=== PATIENT | male | born 1950 | race African-American/Black ===

== ENCOUNTER 2021-01-29 08:28 | Emergency (ER) | payer MEDICARE, MEDICAID ==
[~2021-01-29] VITALS: Ht 165.1 cm; Wt 82.7 kg
[~2021-01-29 08:28] MED LIST: FERR-89 PO; PANT-31 PO
[2021-01-29 09:48] VITALS: BP 132/73
== END 2021-01-29 11:19 | disposition home or self-care (01) ==
LOC: EMS 08:32
DX: F29 Unspecified psychosis not due to a substance or known physiological condition (principal); Z59.0 Homelessness
CPT/HCPCS: 99284; Z7502

== ENCOUNTER 2025-01-14 11:00 | Inpatient (IN) | payer MEDICARE, MEDICAID ==
[~2025-01-14] VITALS: Ht 165.1 cm; Wt 72.7 kg
[~2025-01-14 11:00] MED LIST changes: -FERR-89 PO; +FERR325T27 PO
[2025-01-14 11:40] LABS: APPEARANCE,URINE TURBID (CLEAR); GLUCOSE, URINE (UA) TRACE mg/dL (NEGATIVE); LEUKOCYTE ESTERASE ,URINE LARGE (NEGATIVE); NITRATE,URINE NEGATIVE (NEGATIVE); OCCULT BLOOD,URINE LARGE (NEGATIVE); SPECIFIC GRAVITIY, URINE 1.013 (1.003-1.030)
[2025-01-14 11:40] LABS: PLATELET COUNT (AUTO) 279 K/uL (150-450); RED BLOOD CELL COUNT(AUTO) 2.84 MIL/uL (4.50-5.90); RED CELL DISTRIBUTION WIDTH 15.3 % (11.5-14.5); WHITE BLOOD COUNT (AUTO) 7.4 K/uL (4.5-11.0)
[2025-01-14 11:45] LABS: CALCIUM, TOTAL 10.0 mg/dL (8.8-10.5); CREATININE 3.56 mg/dL (0.60-1.30); GLOMERULAR FILTR. RATE CALC 21.0 mL/min (>60); GLUCOSE,RANDOM 96.0 mg/dL (70-110); SODIUM SERUM 141.0 mmol/L (136-145); UREA NITROGEN, BLOOD 64.0 mg/dL (7-18)
[2025-01-14 11:49] LABS: ASPARTATE AMINOTRANSFERASE 24.0 U/L (15-37); CREATINE KINASE, TOTAL ONLY 171.0 U/L (39-308); TOTAL PROTEIN, SERUM 7.7 g/dL (6.4-8.2)
[2025-01-14 11:49] LABS: SQUAMOUS EPITHELIAL CELL,UR Few /LPF (None Seen); SULFOSALICYLIC ACID,URINE 3+ (Negative)
[2025-01-14] MEDS: CefTRIAXone 1 GM/DEXTROSE 50 ML IV ONE ×2 (12:01→16:11)
[2025-01-14] MEDS: SODIUM CHLORIDE 0.9% 1,000 ML IV ONE ×2 (12:01→16:38)
[2025-01-14] MEDS: MORPHINE SULFATE 2 MG/ML SYRINGE IVP ONE (12:10)
[2025-01-14] MEDS ORDERED: ONDANSETRON HCL 4 MG/2 ML VIAL IVP PRN (16:00)
[2025-01-14] MEDS: HEPARIN SODIUM,PORCINE 5,000 UNITS/ML VIAL SQ SCH (16:00)
[2025-01-14] MEDS ORDERED: MORPHINE SULFATE 2 MG/ML SYRINGE IVP PRN (16:00)
[2025-01-14] MEDS: FERROUS SULFATE 325 MG EC TABLET PO SCH (16:52)
[2025-01-14 19:56] VITALS: BP 126/68; PULSE 83; RESP 20; TEMP 98.2; O2SAT 97
[2025-01-14] MEDS: MAGNESIUM HYDROXIDE SUSPENSION 30 ML UDCUP PO PRN (20:29)
[2025-01-14] MEDS: DOCUSATE SODIUM 100 MG CAPSULE PO SCH (20:29)
[2025-01-14] MEDS: ZOLPIDEM TARTRATE 5 MG TABLET PO PRN (20:43)
[2025-01-14] MEDS ORDERED: PANTOPRAZOLE SODIUM 40 MG DR TABLET PO SCH (21:00)
[2025-01-14] MEDS: HYDROCODONE/ACETAMINOPHEN 5-325 MG TABLET PO PRN (22:47)
[2025-01-15 04:36] VITALS: BP 141/69; PULSE 66; RESP 20; TEMP 97.7; O2SAT 98
[2025-01-15] MEDS ORDERED: BACL10TA PO (06:04)
[2025-01-15 07:35] VITALS: BP 132/66; PULSE 71; RESP 18; TEMP 97.3; O2SAT 98
[2025-01-15 08:03] LABS: PLATELET COUNT (AUTO) 250 K/uL (150-450); RED BLOOD CELL COUNT(AUTO) 2.59 MIL/uL (4.50-5.90); RED CELL DISTRIBUTION WIDTH 15.7 % (11.5-14.5); WHITE BLOOD COUNT (AUTO) 6.8 K/uL (4.5-11.0)
[2025-01-15 08:11] LABS: CALCIUM, TOTAL 9.7 mg/dL (8.8-10.5); CREATININE 2.92 mg/dL (0.60-1.30); GLOMERULAR FILTR. RATE CALC 26.0 mL/min (>60); GLUCOSE,RANDOM 92.0 mg/dL (70-110); SODIUM SERUM 142.0 mmol/L (136-145); UREA NITROGEN, BLOOD 57.0 mg/dL (7-18)
[2025-01-15] MEDS: PANTOPRAZOLE SODIUM 40 MG DR TABLET PO SCH (09:21)
[2025-01-15] MEDS: SODIUM CHLORIDE 0.9% 1,000 ML IV ONE (09:34)
[2025-01-15 15:08] VITALS: BP 137/65; PULSE 78; RESP 20; TEMP 98.1; O2SAT 98
[2025-01-15 19:44] VITALS: BP 133/69; PULSE 79; RESP 18; TEMP 98.4; O2SAT 99
[2025-01-16 03:49] VITALS: BP 132/68; PULSE 78; RESP 18; TEMP 97.7; O2SAT 98
[2025-01-16 06:52] LABS: PLATELET COUNT (AUTO) 252 K/uL (150-450); RED BLOOD CELL COUNT(AUTO) 2.45 MIL/uL (4.50-5.90); RED CELL DISTRIBUTION WIDTH 15.5 % (11.5-14.5); WHITE BLOOD COUNT (AUTO) 6.1 K/uL (4.5-11.0)
[2025-01-16 07:05] LABS: CALCIUM, TOTAL 9.6 mg/dL (8.8-10.5); CREATININE 2.5 mg/dL (0.60-1.30); GLOMERULAR FILTR. RATE CALC 31.0 mL/min (>60); GLUCOSE,RANDOM 84.0 mg/dL (70-110); SODIUM SERUM 141.0 mmol/L (136-145); UREA NITROGEN, BLOOD 46.0 mg/dL (7-18)
[2025-01-16 08:00] VITALS: BP 135/77; PULSE 80; RESP 19; TEMP 97.3; O2SAT 98; O2SAT 99
[2025-01-16] MEDS: SODIUM CHLORIDE 0.9% 1,000 ML IV ONE (08:18)
[2025-01-16 15:30] VITALS: BP 124/72; PULSE 79; RESP 20; TEMP 97.9; O2SAT 99
[2025-01-16] MEDS: CefTRIAXone 1 GM/DEXTROSE 50 ML IV SCH (15:52)
[2025-01-16 19:43] VITALS: BP 127/60; PULSE 79; RESP 18; TEMP 98.4; O2SAT 98
[2025-01-17 04:46] VITALS: BP 120/74; PULSE 71; RESP 18; TEMP 98.2; O2SAT 96
[2025-01-17 06:26] LABS: PLATELET COUNT (AUTO) 254 K/uL (150-450); RED BLOOD CELL COUNT(AUTO) 2.60 MIL/uL (4.50-5.90); RED CELL DISTRIBUTION WIDTH 15.3 % (11.5-14.5); WHITE BLOOD COUNT (AUTO) 6.2 K/uL (4.5-11.0)
[2025-01-17 06:45] LABS: CALCIUM, TOTAL 9.4 mg/dL (8.8-10.5); CREATININE 2.41 mg/dL (0.60-1.30); GLOMERULAR FILTR. RATE CALC 32.0 mL/min (>60); GLUCOSE,RANDOM 89.0 mg/dL (70-110); SODIUM SERUM 139.0 mmol/L (136-145); UREA NITROGEN, BLOOD 39.0 mg/dL (7-18)
[2025-01-17 07:53] VITALS: BP 158/78; PULSE 78; RESP 20; TEMP 98.1; O2SAT 98
[2025-01-17] MEDS: SODIUM CHLORIDE 0.9% 1,000 ML IV ONE (13:38)
[2025-01-17 16:25] VITALS: BP 118/71; PULSE 75; RESP 20; TEMP 98.2; O2SAT 98
[2025-01-17 19:47] VITALS: BP 127/75; PULSE 89; RESP 18; TEMP 98.6; O2SAT 96
[2025-01-18 04:08] VITALS: BP 139/76; PULSE 86; RESP 18; TEMP 98.1; O2SAT 98
[2025-01-18 06:16] LABS: PLATELET COUNT (AUTO) 269 K/uL (150-450); RED BLOOD CELL COUNT(AUTO) 2.63 MIL/uL (4.50-5.90); RED CELL DISTRIBUTION WIDTH 15.7 % (11.5-14.5); WHITE BLOOD COUNT (AUTO) 7.3 K/uL (4.5-11.0)
[2025-01-18 08:06] VITALS: BP 139/77; PULSE 89; RESP 18; TEMP 97.5; O2SAT 96
[2025-01-18 08:11] LABS: CALCIUM, TOTAL 9.6 mg/dL (8.8-10.5); CREATININE 2.32 mg/dL (0.60-1.30); GLOMERULAR FILTR. RATE CALC 34.0 mL/min (>60); GLUCOSE,RANDOM 88.0 mg/dL (70-110); SODIUM SERUM 142.0 mmol/L (136-145)
[2025-01-18 11:00] LABS: UREA NITROGEN, BLOOD 37.0 mg/dL (7-18)
[2025-01-18 16:13] VITALS: BP 139/77; PULSE 89; RESP 18; TEMP 97.5; O2SAT 96
[2025-01-18] MEDS ORDERED: NALOXONE HCL 1 MG/ML 2 ML SYRINGE IVP PRN (19:45)
[2025-01-18 20:05] VITALS: BP 129/65; PULSE 77; RESP 18; TEMP 98.2; O2SAT 96
[2025-01-18] MEDS: MORPHINE SULFATE 2 MG/ML SYRINGE IVP PRN (21:25)
[2025-01-19 04:45] VITALS: BP 126/73; PULSE 90; RESP 18; TEMP 98.4; O2SAT 98
[2025-01-19 06:39] LABS: CALCIUM, TOTAL 9.8 mg/dL (8.8-10.5); CREATININE 2.5 mg/dL (0.60-1.30); GLOMERULAR FILTR. RATE CALC 31.0 mL/min (>60); GLUCOSE,RANDOM 91.0 mg/dL (70-110); SODIUM SERUM 141.0 mmol/L (136-145); UREA NITROGEN, BLOOD 34.0 mg/dL (7-18)
[2025-01-19 07:00] LABS: PLATELET COUNT (AUTO) 274 K/uL (150-450); RED BLOOD CELL COUNT(AUTO) 2.62 MIL/uL (4.50-5.90); RED CELL DISTRIBUTION WIDTH 15.3 % (11.5-14.5); WHITE BLOOD COUNT (AUTO) 7.4 K/uL (4.5-11.0)
[2025-01-19 08:49] VITALS: BP 144/76; PULSE 90; RESP 18; TEMP 98.4; O2SAT 96
[2025-01-19] MEDS: MORPHINE SULFATE 2 MG/ML SYRINGE IVP PRN (13:55)
[2025-01-19] MEDS: DEXAMETHASONE SOD PHOS 4 MG/ML 5 ML VIAL IVP ONE (13:55)
[2025-01-19] MEDS: SODIUM CHLORIDE 0.9% 1,000 ML IV SCH (22:05)
[2025-01-19 22:11] VITALS: BP 118/73; PULSE 98; RESP 18; TEMP 99; O2SAT 95
[2025-01-20 06:12] VITALS: BP 131/77; PULSE 83; RESP 19; TEMP 98.4; O2SAT 96
[2025-01-20 06:16] LABS: PLATELET COUNT (AUTO) 260 K/uL (150-450); RED BLOOD CELL COUNT(AUTO) 2.43 MIL/uL (4.50-5.90); RED CELL DISTRIBUTION WIDTH 15.3 % (11.5-14.5); WHITE BLOOD COUNT (AUTO) 7.8 K/uL (4.5-11.0)
[2025-01-20 06:29] LABS: LACTATE DEHYDROGENASE 185.0 U/L (85-227); PHOSPHORUS 3.9 mg/dL (2.5-4.9)
[2025-01-20 07:43] LABS: CALCIUM, TOTAL 8.8 mg/dL (8.8-10.5); CREATININE 2.43 mg/dL (0.60-1.30); GLOMERULAR FILTR. RATE CALC 32.0 mL/min (>60); GLUCOSE,RANDOM 91.0 mg/dL (70-110); SODIUM SERUM 139.0 mmol/L (136-145); UREA NITROGEN, BLOOD 39.0 mg/dL (7-18)
[2025-01-20 08:27] VITALS: BP 144/81; PULSE 92; RESP 18; TEMP 99; O2SAT 98
[2025-01-20 15:04] VITALS: BP 131/58; PULSE 81; RESP 18; TEMP 98.6; O2SAT 96
[2025-01-20 20:26] VITALS: BP 131/73; PULSE 87; RESP 18; TEMP 98.8; O2SAT 96
[2025-01-20] MEDS ORDERED: SODIUM CHLORIDE 0.9% 500 ML IV ONE (22:52)
[2025-01-21 04:42] VITALS: BP 145/76; PULSE 83; RESP 20; TEMP 98.8; O2SAT 95
[2025-01-21 09:08] LABS: FREE KAPPA LIGHT CHAINS,S 53.8 mg/L (3.3-19.4); FREE KAPPA/LAMBDA LT CHN RATIO 1.58 (0.26-1.65)
[2025-01-21] MEDS ORDERED: CeFAZolin 2 GM/DEXTROSE 50 ML IV ONE (09:35)
[2025-01-21] MEDS: CeFAZolin 2 GM/DEXTROSE 50 ML IV ONE (09:53)
[2025-01-21] MEDS: CHLORHEXIDINE GLUCONATE 2% TOWELETTE [2'S/6'S] TP ONE (09:53)
[2025-01-21] MEDS: ETHYL ALCOHOL 62% ANTISEPTIC NASAL SANITIZER 0.6 ML AMPUL NASAL ONE (09:53)
[2025-01-21] MEDS ORDERED: LIDOCAINE 2% 11 ML JELLY ONE (10:29)
[2025-01-21] MEDS ORDERED: IOHEXOL 240 MG/ML 20 ML VIAL ONE (11:46)
[2025-01-21] MEDS: FentaNYL CITRATE PF 100 MCG/2 ML VIAL IVP ONE ×2 (12:34→13:15)
[2025-01-21] MEDS: ACETAMINOPHEN 1000 MG/ISO-OSM 100 ML IV ONE (12:34)
[2025-01-21] MEDS: IOHEXOL 240 MG/ML 20 ML VIAL ONE (15:16)
[2025-01-21 15:57] LABS: CALCIUM, TOTAL 8.8 mg/dL (8.8-10.5); CREATININE 2.44 mg/dL (0.60-1.30); GLOMERULAR FILTR. RATE CALC 32.0 mL/min (>60); GLUCOSE,RANDOM 109.0 mg/dL (70-110); SODIUM SERUM 139.0 mmol/L (136-145); UREA NITROGEN, BLOOD 36.0 mg/dL (7-18)
[2025-01-21 16:16] LABS: % IRON SATURATION 25.5 % (30-44); IRON, SERUM 36.0 mcg/dL (50-175)
[2025-01-21 20:15] VITALS: BP 120/73; PULSE 90; RESP 19; TEMP 98.4; O2SAT 97
[2025-01-22 05:13] VITALS: BP 146/74; PULSE 81; RESP 18; TEMP 98.1; O2SAT 98
[2025-01-22] MEDS: BISACODYL 10 MG RECTAL RECTAL SUPPOSITORY PR PRN (05:51)
[2025-01-22 08:00] VITALS: BP 132/78; PULSE 86; RESP 18; TEMP 98.8; O2SAT 98
[2025-01-22 09:28] LABS: CALCIUM, TOTAL 8.8 mg/dL (8.8-10.5); CREATININE 2.14 mg/dL (0.60-1.30); GLOMERULAR FILTR. RATE CALC 37.0 mL/min (>60); GLUCOSE,RANDOM 139.0 mg/dL (70-110); SODIUM SERUM 138.0 mmol/L (136-145); UREA NITROGEN, BLOOD 31.0 mg/dL (7-18)
[2025-01-22 13:36] LABS: PLATELET COUNT (AUTO) 257 K/uL (150-450); RED BLOOD CELL COUNT(AUTO) 2.42 MIL/uL (4.50-5.90); RED CELL DISTRIBUTION WIDTH 15.7 % (11.5-14.5); WHITE BLOOD COUNT (AUTO) 6.4 K/uL (4.5-11.0)
[2025-01-22 13:41] LABS: CALCIUM, TOTAL 8.6 mg/dL (8.8-10.5); CREATININE 2.08 mg/dL (0.60-1.30); GLOMERULAR FILTR. RATE CALC 38.0 mL/min (>60); GLUCOSE,RANDOM 96.0 mg/dL (70-110); SODIUM SERUM 138.0 mmol/L (136-145); UREA NITROGEN, BLOOD 29.0 mg/dL (7-18)
[2025-01-22 13:48] LABS: ASPARTATE AMINOTRANSFERASE 18.0 U/L (15-37); TOTAL PROTEIN, SERUM 6.5 g/dL (6.4-8.2)
[2025-01-22] MEDS: POLYETHYLENE GLYCOL 3350 17 GM PACKET PO SCH (14:42)
[2025-01-22] MEDS: SENNOSIDES 8.6 MG TABLET PO ONE (14:42)
[2025-01-22] MEDS: BISACODYL 5 MG EC TABLET PO ONE (14:42)
[2025-01-22] MEDS ORDERED: POLY17PO62 PO (15:08)
[2025-01-22 16:29] VITALS: BP 145/71; PULSE 85; RESP 19; TEMP 97.7; O2SAT 98
[2025-01-22 20:30] VITALS: BP 126/65; PULSE 90; RESP 18; TEMP 98.8; O2SAT 96
[2025-01-23 04:06] VITALS: BP 138/79; PULSE 86; RESP 20; TEMP 98.8; O2SAT 97
[2025-01-23 07:16] LABS: CALCIUM, TOTAL 9.1 mg/dL (8.8-10.5); CREATININE 2.06 mg/dL (0.60-1.30); GLOMERULAR FILTR. RATE CALC 39.0 mL/min (>60); GLUCOSE,RANDOM 94.0 mg/dL (70-110); SODIUM SERUM 139.0 mmol/L (136-145); UREA NITROGEN, BLOOD 24.0 mg/dL (7-18)
[2025-01-23] MEDS ORDERED: ONDANSETRON HCL 4 MG/2 ML VIAL IVP ONE (07:54)
[2025-01-23] MEDS ORDERED: DEXAMETHASONE SOD PHOS 4 MG/ML VIAL IVP ONE (07:54)
[2025-01-23] MEDS ORDERED: ROCURONIUM BROMIDE 10 MG/ML 5 ML VIAL IVP ONE (07:54)
[2025-01-23] MEDS ORDERED: PROPOFOL 1% 20 ML VIAL IVP ONE (07:54)
[2025-01-23] MEDS ORDERED: PROPOFOL 1% ISO-OSM 1000 MG/100 ML BOTTLE IV ONE (07:54)
[2025-01-23 08:13] VITALS: BP 147/84; PULSE 78; RESP 19; TEMP 98.4; O2SAT 96
[2025-01-23 12:06] LABS: FREE KAPPA LT CHAINS,URINE 113.31 mg/L (1.17-86.46); FREE LAMBDA LT CHAINS,URINE 7.78 mg/L (0.27-15.21); KAPPA/LAMBDA RATIO,URINE 14.56 (1.83-14.26)
[2025-01-23 15:19] VITALS: BP 146/82; PULSE 95; RESP 18; TEMP 98.1; O2SAT 99
[2025-01-23 19:50] VITALS: BP 131/67; PULSE 86; RESP 18; TEMP 98.4; O2SAT 97
[2025-01-24 06:08] VITALS: BP 139/77; PULSE 82; RESP 18; TEMP 98.4; O2SAT 98
[2025-01-24 08:20] VITALS: BP 146/83; PULSE 80; RESP 18; TEMP 98.6; O2SAT 98
[2025-01-24 16:15] VITALS: BP 136/78; PULSE 88; RESP 18; TEMP 98.2; O2SAT 98
[2025-01-24 20:00] VITALS: BP 148/74; PULSE 82; RESP 18; TEMP 99.3; O2SAT 100
[2025-01-24 20:18] VITALS: PULSE 76; TEMP 99.9
[2025-01-24] MEDS: ACETAMINOPHEN 325 MG TABLET PO PRN (20:19)
[2025-01-25] VITALS (12 sets, daily range): BP systolic 122–151; BP diastolic 71–88; PULSE 78–82; RESP 16–18; TEMP 98.4–99; O2SAT 96–98
[2025-01-25 06:01] LABS: PLATELET COUNT (AUTO) 261 K/uL (150-450); RED BLOOD CELL COUNT(AUTO) 2.31 MIL/uL (4.50-5.90); RED CELL DISTRIBUTION WIDTH 16.0 % (11.5-14.5); WHITE BLOOD COUNT (AUTO) 5.7 K/uL (4.5-11.0)
[2025-01-25 06:10] LABS: CALCIUM, TOTAL 9.1 mg/dL (8.8-10.5); CREATININE 1.96 mg/dL (0.60-1.30); GLOMERULAR FILTR. RATE CALC 41.0 mL/min (>60); GLUCOSE,RANDOM 90.0 mg/dL (70-110); SODIUM SERUM 139.0 mmol/L (136-145); UREA NITROGEN, BLOOD 24.0 mg/dL (7-18)
[2025-01-25] MEDS: MAGNESIUM SULFATE 2 GM/WATER 50 ML IV ONE (09:06)
[2025-01-26 05:17] VITALS: BP 139/78; PULSE 68; RESP 18; TEMP 98; O2SAT 96
[2025-01-26 06:12] LABS: RED BLOOD CELL COUNT(AUTO) 3.00 MIL/uL (4.50-5.90)
[2025-01-26 06:36] LABS: PLATELET COUNT (AUTO) 251 K/uL (150-450); RED CELL DISTRIBUTION WIDTH 16.6 % (11.5-14.5); WHITE BLOOD COUNT (AUTO) 6.4 K/uL (4.5-11.0)
[2025-01-26 07:38] VITALS: BP 129/81; PULSE 75; RESP 20; TEMP 99; O2SAT 97
[2025-01-26 16:01] VITALS: BP 143/72; PULSE 78; RESP 20; TEMP 98.8; O2SAT 96
[2025-01-26 20:10] VITALS: BP 131/67; PULSE 80; RESP 18; TEMP 99.3; O2SAT 96
[2025-01-27 04:41] VITALS: BP 135/76; PULSE 77; RESP 18; TEMP 98.8; O2SAT 95
[2025-01-27 08:20] VITALS: BP 149/84; PULSE 72; RESP 18; TEMP 99.1; O2SAT 97
[2025-01-27] MEDS: LACTULOSE 20 GM/30 ML SOLUTION UDCUP PO PRN (13:39)
[2025-01-31 06:07] LABS: ALBUMIN/GLOBULIN RATIO (IFE) 1.1 (0.7-1.7); ALPHA-1 (IFE & PEP) 0.4 g/dL (0.0-0.4); ALPHA-2 (IFE & PEP) 0.9 g/dL (0.4-1.0); BETA (IFE & ELP) 0.7 g/dL (0.7-1.3); GAMMA GLOBULINS (IFE & ELP) 1.1 g/dL (0.4-1.8); GLOBULIN TOTAL (IFE) 3.0 g/dL (2.2-3.9); IGA (IFE) 361 mg/dL (61-437); IGM (IMMUNOFIXATION) 94 mg/dL (15-143); M-SPIKE (IEP) Not Observed g/dL (Not Observed)
[2025-02-04] MEDS ORDERED: HEPA50009 SQ (11:57)
[2025-02-04] MEDS ORDERED: HYDR-4062 PO (11:57)
[2025-02-04] MEDS ORDERED: DICL100G60 TP (11:57)
[2025-02-04] MEDS ORDERED: ASCO500 PO (11:57)
== END 2025-01-27 15:30 | DRG 660 ==
LOC: EMS 11:01 → EDH 13:49 → 4E 16:45
PROVIDERS: ADMIT Internal Medicine; ATTEND Internal Medicine
PROC: 0T788DZ Dilation of Bilateral Ureters with Intraluminal Device, Via Natural or Artificial Opening Endoscopic (ICD-10-PCS; 2025-01-21)
PROC: 0TP98DZ Removal of Intraluminal Device from Ureter, Via Natural or Artificial Opening Endoscopic (ICD-10-PCS; 2025-01-21)
PROC: BT141ZZ Fluoroscopy of Kidneys, Ureters and Bladder using Low Osmolar Contrast (ICD-10-PCS; principal; 2025-01-21 11:00)
PROC: 30233N1 Transfusion of Nonautologous Red Blood Cells into Peripheral Vein, Percutaneous Approach (ICD-10-PCS; 2025-01-25)
DX: N13.30 Unspecified hydronephrosis (principal); C79.51 Secondary malignant neoplasm of bone; M84.48XA Pathological fracture, other site, initial encounter for fracture; M84.451A Pathological fracture, right femur, initial encounter for fracture; C79.82 Secondary malignant neoplasm of genital organs; E44.0 Moderate protein-calorie malnutrition; N17.0 Acute kidney failure with tubular necrosis; G90.89 Other disorders of autonomic nervous system; N18.9 Chronic kidney disease, unspecified; E78.5 Hyperlipidemia, unspecified; D64.9 Anemia, unspecified; G89.3 Neoplasm related pain (acute) (chronic); K57.30 Diverticulosis of large intestine without perforation or abscess without bleeding; M16.11 Unilateral primary osteoarthritis, right hip; C61 Malignant neoplasm of prostate; N40.0 Benign prostatic hyperplasia without lower urinary tract symptoms; E83.42 Hypomagnesemia; Z87.891 Personal history of nicotine dependence; Z79.899 Other long term (current) drug therapy; Z87.440 Personal history of urinary (tract) infections; N39.0 Urinary tract infection, site not specified; Z68.26 Body mass index [BMI] 26.0-26.9, adult
CPT/HCPCS: 72131; 72146; 72195; 73502; 74176; 80048; 80053; 80076; 81001; 81002; 82271; 82550; 82784; 83540; 83550; 83615; 83735; 83883; 84100; 84153; 84155; 84165; 84550; 85025; 85045; 85610; 85730; 86334; 86850; 86900; 86901; 86923; 87086; 96365; 96375; 97110; 97116; 97163; 97530; 99285; G0378; J0131; J0690; J0696; J1100; J1644; J2270; J2405; J2704; J3010; J3475; J3490; J7030; J7040; P9016; Q9966

== ENCOUNTER 2025-02-26 22:22 | Inpatient (IN) | payer MEDICARE, MEDICAID ==
[~2025-02-26] VITALS: Ht 165.1 cm; Wt 62.0 kg
[~2025-02-26 22:22] MED LIST changes: +ACET-784 PO; +ALBU2.5V39 NEB; +ASCO500 PO; -FERR325T27 PO; +PERCT PO; +ZOLP-280 PO
[2025-02-26 23:14] LABS: PLATELET COUNT (AUTO) 231 K/uL (150-450); RED BLOOD CELL COUNT(AUTO) 2.32 MIL/uL (4.50-5.90); RED CELL DISTRIBUTION WIDTH 16.5 % (11.5-14.5); WHITE BLOOD COUNT (AUTO) 6.1 K/uL (4.5-11.0)
[2025-02-26 23:32] LABS: CALCIUM, TOTAL 10.5 mg/dL (8.8-10.5); CREATININE 3.33 mg/dL (0.60-1.30); GLOMERULAR FILTR. RATE CALC 22.0 mL/min (>60); GLUCOSE,RANDOM 100.0 mg/dL (70-110); SODIUM SERUM 140.0 mmol/L (136-145); UREA NITROGEN, BLOOD 46.0 mg/dL (7-18)
[2025-02-27 02:16] LABS: APPEARANCE,URINE HAZY (CLEAR); GLUCOSE, URINE (UA) NEGATIVE (NEGATIVE); LEUKOCYTE ESTERASE ,URINE LARGE (NEGATIVE); NITRATE,URINE NEGATIVE (NEGATIVE); OCCULT BLOOD,URINE LARGE (NEGATIVE); SPECIFIC GRAVITIY, URINE 1.013 (1.003-1.030)
[2025-02-27 02:32] LABS: SQUAMOUS EPITHELIAL CELL,UR Rare /LPF (None Seen); SULFOSALICYLIC ACID,URINE 4+ (Negative)
[2025-02-27] MEDS: CefTRIAXone 1 GM/DEXTROSE 50 ML IV ONE (03:37)
[2025-02-27] MEDS: PANTOPRAZOLE SODIUM 40 MG/VIAL IVP ONE (03:37)
[2025-02-27] MEDS: SODIUM CHLORIDE 0.9% 1,000 ML IV ONE (03:37)
[2025-02-27] MEDS ORDERED: PERCT PO (07:41)
[2025-02-27] MEDS ORDERED: ZINC50CA3 PO (07:41)
[2025-02-27] MEDS ORDERED: MIRT-89 PO (07:41)
[2025-02-27] MEDS ORDERED: OMEP-148 PO (07:41)
[2025-02-27 12:43] VITALS: BP 131/73; PULSE 84; RESP 18; TEMP 98.2; O2SAT 96
[2025-02-27 15:58] VITALS: BP 134/73; PULSE 91; RESP 17; TEMP 98.2; O2SAT 98
[2025-02-27] MEDS ORDERED: BISACODYL 10 MG RECTAL RECTAL SUPPOSITORY PR PRN (17:30)
[2025-02-27] MEDS ORDERED: ALBUTEROL SULFATE 2.5 MG/0.5 ML NEB SOLUTION NEB PRN ×2 (17:30)
[2025-02-27] MEDS ORDERED: ACETAMINOPHEN 325 MG TABLET PO PRN ×2 (17:30)
[2025-02-27] MEDS ORDERED: ZOLPIDEM TARTRATE 5 MG TABLET PO PRN ×2 (17:30)
[2025-02-27] MEDS ORDERED: IPRATROPIUM BROMIDE 0.5 MG/2.5 ML NEB SOLUTION NEB PRN (17:30)
[2025-02-27] MEDS ORDERED: OxyCODONE HCL/ACETAMINOPHEN 5-325 MG TABLET PO PRN ×2 (17:30)
[2025-02-27] MEDS ORDERED: MAGNESIUM HYDROXIDE SUSPENSION 30 ML UDCUP PO PRN (17:30)
[2025-02-27] MEDS ORDERED: MORPHINE SULFATE 4 MG/ML SYRINGE IVP PRN (17:30)
[2025-02-27 19:43] VITALS: BP 127/72; PULSE 96; RESP 18; TEMP 98.8; O2SAT 98
[2025-02-27] MEDS: MIRTAZAPINE 15 MG TABLET PO SCH (20:34)
[2025-02-27] MEDS: HYDROCODONE/ACETAMINOPHEN 5-325 MG TABLET PO PRN (20:34)
[2025-02-27] MEDS ORDERED: PANTOPRAZOLE SODIUM 40 MG DR TABLET PO SCH (21:00)
[2025-02-28] VITALS (14 sets, daily range): BP systolic 115–140; BP diastolic 67–88; PULSE 76–113; RESP 16–18; TEMP 97.9–99; O2SAT 95–98
[2025-02-28 06:54] LABS: PLATELET COUNT (AUTO) 215 K/uL (150-450); RED BLOOD CELL COUNT(AUTO) 2.35 MIL/uL (4.50-5.90); RED CELL DISTRIBUTION WIDTH 16.7 % (11.5-14.5)
[2025-02-28 08:51] LABS: BAND NEUTROPHILS % (MANUAL) 7 % (0-5); CORRECTED WHITE BLOOD COUNT 5.4 K/uL (4.5-11.0); LYMPHOCYTES % (MANUAL) 30 % (22-44); MONOCYTES % (MANUAL) 8 % (2-9); NUCLEATED RED BLOOD CELLS 5.0 % (0.0-0.0); SEGMENTED NEUTROPHILS % 55 % (40-70); WHITE BLOOD COUNT (AUTO) 5.4 K/uL (4.5-11.0)
[2025-02-28] MEDS ORDERED: OMEPRAZOLE 20 MG CAPSULE PO SCH (09:00)
[2025-02-28] MEDS: ASCORBIC ACID 500 MG TABLET PO SCH (09:22)
[2025-02-28] MEDS: ZINC SULFATE 220 MG CAPSULE PO SCH (09:22)
[2025-02-28] MEDS: PANTOPRAZOLE SODIUM 40 MG DR TABLET PO SCH (09:22)
[2025-02-28] MEDS: TAMSULOSIN HCL 0.4 MG CAPSULE PO SCH (18:12)
[2025-02-28] MEDS: SODIUM CHLORIDE 0.9% 1,000 ML IV ONE (18:13)
[2025-03-01 04:01] VITALS: BP 112/75; PULSE 84; RESP 18; TEMP 98.6; O2SAT 98
[2025-03-01 07:55] LABS: PLATELET COUNT (AUTO) 211 K/uL (150-450); RED BLOOD CELL COUNT(AUTO) 2.77 MIL/uL (4.50-5.90); RED CELL DISTRIBUTION WIDTH 16.7 % (11.5-14.5); WHITE BLOOD COUNT (AUTO) 5.9 K/uL (4.5-11.0)
[2025-03-01 08:05] LABS: CALCIUM, TOTAL 10.5 mg/dL (8.8-10.5); CREATININE 3.51 mg/dL (0.60-1.30); GLOMERULAR FILTR. RATE CALC 21.0 mL/min (>60); GLUCOSE,RANDOM 133.0 mg/dL (70-110); SODIUM SERUM 142.0 mmol/L (136-145); UREA NITROGEN, BLOOD 43.0 mg/dL (7-18)
[2025-03-01 08:33] VITALS: BP 110/70; PULSE 88; RESP 18; TEMP 98; O2SAT 97
[2025-03-01 11:18] VITALS: BP 128/77; PULSE 97; RESP 18; TEMP 97.7; O2SAT 96
[2025-03-01] MEDS: ONDANSETRON HCL 4 MG/2 ML VIAL IVP PRN (12:57)
[2025-03-01] MEDS ORDERED: SODIUM CHLORIDE 0.9% 250 ML IV ONE (14:40)
[2025-03-01] MEDS: CefTRIAXone 1 GM/DEXTROSE 50 ML IV SCH (15:21)
[2025-03-01 19:32] VITALS: BP 114/71; PULSE 103; RESP 18; TEMP 99; O2SAT 98
[2025-03-02] VITALS (7 sets, daily range): BP systolic 109–135; BP diastolic 64–81; PULSE 89–104; RESP 17–18; TEMP 98.1–99.2; O2SAT 95–98
[2025-03-02 06:19] LABS: PLATELET COUNT (AUTO) 191 K/uL (150-450); RED BLOOD CELL COUNT(AUTO) 2.52 MIL/uL (4.50-5.90); RED CELL DISTRIBUTION WIDTH 16.8 % (11.5-14.5); WHITE BLOOD COUNT (AUTO) 5.7 K/uL (4.5-11.0)
[2025-03-02 06:23] LABS: ASPARTATE AMINOTRANSFERASE 15.0 U/L (15-37); CALCIUM, TOTAL 10.6 mg/dL (8.8-10.5); CREATININE 3.56 mg/dL (0.60-1.30); GLOMERULAR FILTR. RATE CALC 21.0 mL/min (>60); GLUCOSE,RANDOM 107.0 mg/dL (70-110); SODIUM SERUM 140.0 mmol/L (136-145); TOTAL PROTEIN, SERUM 7.1 g/dL (6.4-8.2); UREA NITROGEN, BLOOD 47.0 mg/dL (7-18)
[2025-03-02 08:18] LABS: NUCLEATED RED BLOOD CELLS 2.0 % (0.0-0.0)
[2025-03-02] MEDS ORDERED: DENOSUMAB 60 MG/ML SYRINGE SQ ONE (16:00)
[2025-03-03 05:38] VITALS: BP 121/75; PULSE 95; RESP 18; TEMP 98.4; O2SAT 99
[2025-03-03 06:23] LABS: ASPARTATE AMINOTRANSFERASE 13.0 U/L (15-37); CALCIUM, TOTAL 10.6 mg/dL (8.8-10.5); CREATININE 3.43 mg/dL (0.60-1.30); GLOMERULAR FILTR. RATE CALC 21.0 mL/min (>60); GLUCOSE,RANDOM 102.0 mg/dL (70-110); PHOSPHORUS 4.1 mg/dL (2.5-4.9); SODIUM SERUM 140.0 mmol/L (136-145); TOTAL PROTEIN, SERUM 7.1 g/dL (6.4-8.2); UREA NITROGEN, BLOOD 47.0 mg/dL (7-18)
[2025-03-03 06:28] VITALS: BP 107/76; PULSE 95; RESP 18; TEMP 98.1; O2SAT 96
[2025-03-03 09:00] VITALS: BP 127/73; PULSE 97; RESP 18; TEMP 98.8; O2SAT 100
[2025-03-03] MEDS: DENOSUMAB 60 MG/ML SYRINGE SQ ONE (10:24)
[2025-03-03 11:00] LABS: PLATELET COUNT (AUTO) 188 K/uL (150-450); RED BLOOD CELL COUNT(AUTO) 2.56 MIL/uL (4.50-5.90); RED CELL DISTRIBUTION WIDTH 16.5 % (11.5-14.5); WHITE BLOOD COUNT (AUTO) 5.2 K/uL (4.5-11.0)
[2025-03-03] MEDS: DEXTROSE 5%-0.9% SODIUM CHL 1,000 ML IV ONE (13:32)
[2025-03-03 15:00] VITALS: BP 129/75; PULSE 100; RESP 18; TEMP 98.4; O2SAT 98
[2025-03-03 19:22] VITALS: BP 115/64; PULSE 64; RESP 17; TEMP 99; O2SAT 99
[2025-03-04 03:46] VITALS: BP 115/71; PULSE 90; RESP 18; TEMP 98.4; O2SAT 100
[2025-03-04 07:19] LABS: CALCIUM, TOTAL 9.2 mg/dL (8.8-10.5); CREATININE 3.56 mg/dL (0.60-1.30); GLOMERULAR FILTR. RATE CALC 21.0 mL/min (>60); GLUCOSE,RANDOM 111.0 mg/dL (70-110); SODIUM SERUM 139.0 mmol/L (136-145); UREA NITROGEN, BLOOD 47.0 mg/dL (7-18)
[2025-03-04] MEDS: DOCUSATE SODIUM 100 MG CAPSULE PO SCH (08:25)
[2025-03-04 08:27] VITALS: BP 112/65; PULSE 86; RESP 18; TEMP 98.4; O2SAT 100
[2025-03-04] MEDS ORDERED: CEFT1VIA65 IV (11:07)
[2025-03-04] MEDS ORDERED: DOCU-385 PO (11:09)
[2025-03-04] MEDS ORDERED: PANT-31 PO (11:10)
[2025-03-04] MEDS ORDERED: TAMS0.4C94 PO (11:11)
[2025-03-04] MEDS ORDERED: BISA10SU11 PR (11:15)
== END 2025-03-04 15:10 | DRG 683 ==
LOC: EMS 22:40 → EDH 02-27 02:50 → 5S 02-27 10:30 → 6S 03-03 06:11
PROVIDERS: ADMIT Hospitalist; ATTEND Hospitalist
PROC: 30233N1 Transfusion of Nonautologous Red Blood Cells into Peripheral Vein, Percutaneous Approach (ICD-10-PCS; principal; 2025-02-28)
DX: N17.9 Acute kidney failure, unspecified (principal); C79.51 Secondary malignant neoplasm of bone; N13.8 Other obstructive and reflux uropathy; I47.10 Supraventricular tachycardia, unspecified; R64 Cachexia; C90.00 Multiple myeloma not having achieved remission; N13.6 Pyonephrosis; N40.0 Benign prostatic hyperplasia without lower urinary tract symptoms; L89.159 Pressure ulcer of sacral region, unspecified stage; R31.0 Gross hematuria; R53.1 Weakness; D63.8 Anemia in other chronic diseases classified elsewhere; E78.00 Pure hypercholesterolemia, unspecified; N21.0 Calculus in bladder; N18.9 Chronic kidney disease, unspecified; Z85.46 Personal history of malignant neoplasm of prostate; Z87.440 Personal history of urinary (tract) infections; Z87.442 Personal history of urinary calculi; Z87.891 Personal history of nicotine dependence; Z68.22 Body mass index [BMI] 22.0-22.9, adult
CPT/HCPCS: 74176; 76770; 80048; 80053; 81001; 81002; 82306; 84100; 85025; 86850; 86900; 86901; 86923; 87040; 87081; 87086; 93005; 99285; J0696; J2405; J2470; J7030; J7042; J7050; P9016

== ENCOUNTER 2025-03-08 00:09 | Inpatient (IN) | payer MEDICARE, MEDICAID ==
[2025-03-08] VITALS (10 sets, daily range): BP systolic 112–140; BP diastolic 66–88; PULSE 92–106; RESP 16–28; TEMP 97.8–99.7; O2SAT 97–98
[~2025-03-08] VITALS: Ht 165.1 cm; Wt 62.9 kg
[~2025-03-08 00:09] MED LIST changes: +BISA10SU11 PR; +CEFT1VIA65 IV; +DOCU-385 PO; +MIRT-89 PO; -PERCT PO; +TAMS0.4C94 PO; +ZINC50CA3 PO; -ZOLP-280 PO
[2025-03-08 00:48] LABS: PLATELET COUNT (AUTO) 150 K/uL (150-450); RED BLOOD CELL COUNT(AUTO) 2.13 MIL/uL (4.50-5.90); RED CELL DISTRIBUTION WIDTH 16.8 % (11.5-14.5); WHITE BLOOD COUNT (AUTO) 5.7 K/uL (4.5-11.0)
[2025-03-08 00:51] LABS: CALCIUM, TOTAL 7.7 mg/dL (8.8-10.5); CREATININE 2.04 mg/dL (0.60-1.30); GLOMERULAR FILTR. RATE CALC 39 mL/min (>60); GLUCOSE,RANDOM 114 mg/dL (70-110); SODIUM SERUM 140 mmol/L (136-145); UREA NITROGEN, BLOOD 35 mg/dL (7-18)
[2025-03-08 00:55] LABS: APPEARANCE,URINE TURBID (CLEAR); GLUCOSE, URINE (UA) NEGATIVE (NEGATIVE); LEUKOCYTE ESTERASE ,URINE LARGE (NEGATIVE); NITRATE,URINE NEGATIVE (NEGATIVE); OCCULT BLOOD,URINE LARGE (NEGATIVE); SPECIFIC GRAVITIY, URINE 1.018 (1.003-1.030)
[2025-03-08 00:56] LABS: CREATINE KINASE, TOTAL ONLY 47 U/L (39-308)
[2025-03-08 01:00] LABS: TROPONIN I-HIGH SENSITIVITY 26 ng/L (<76)
[2025-03-08 01:08] LABS: SULFOSALICYLIC ACID,URINE 2+ (Negative)
[2025-03-08 01:09] LABS: SQUAMOUS EPITHELIAL CELL,UR None Seen /LPF (None Seen)
[2025-03-08] MEDS: SODIUM CHLORIDE 0.9% 1,000 ML IV ONE (01:15)
[2025-03-08] MEDS: MORPHINE SULFATE 2 MG/ML SYRINGE IVP ONE ×2 (01:29→03:42)
[2025-03-08] MEDS: CefTRIAXone 1 GM/DEXTROSE 50 ML IV ONE (02:31)
[2025-03-08] MEDS ORDERED: FAMO20 PO (05:32)
[2025-03-08] MEDS ORDERED: BISACODYL 10 MG RECTAL RECTAL SUPPOSITORY PR PRN ×2 (16:45→17:00)
[2025-03-08] MEDS ORDERED: IPRATROPIUM BROMIDE 0.5 MG/2.5 ML NEB SOLUTION NEB PRN (17:00)
[2025-03-08] MEDS ORDERED: MORPHINE SULFATE 4 MG/ML SYRINGE IVP PRN (17:00)
[2025-03-08] MEDS ORDERED: ONDANSETRON HCL 4 MG/2 ML VIAL IVP PRN (17:00)
[2025-03-08] MEDS ORDERED: ALBUTEROL SULFATE 2.5 MG/0.5 ML NEB SOLUTION NEB PRN (17:00)
[2025-03-08] MEDS ORDERED: MAGNESIUM HYDROXIDE SUSPENSION 30 ML UDCUP PO PRN (17:00)
[2025-03-08] MEDS ORDERED: ZOLPIDEM TARTRATE 5 MG TABLET PO PRN (17:00)
[2025-03-08 17:44] LABS: PLATELET COUNT (AUTO) 143 K/uL (150-450); RED BLOOD CELL COUNT(AUTO) 2.42 MIL/uL (4.50-5.90); RED CELL DISTRIBUTION WIDTH 15.9 % (11.5-14.5); WHITE BLOOD COUNT (AUTO) 11.4 K/uL (4.5-11.0)
[2025-03-08 17:55] LABS: CALCIUM, TOTAL 7.4 mg/dL (8.8-10.5); CREATININE 2.15 mg/dL (0.60-1.30); GLOMERULAR FILTR. RATE CALC 37.0 mL/min (>60); GLUCOSE,RANDOM 140.0 mg/dL (70-110); SODIUM SERUM 140.0 mmol/L (136-145); UREA NITROGEN, BLOOD 33.0 mg/dL (7-18)
[2025-03-08 17:59] LABS: ASPARTATE AMINOTRANSFERASE 24.0 U/L (15-37); TOTAL PROTEIN, SERUM 6.6 g/dL (6.4-8.2)
[2025-03-08] MEDS: DOCUSATE SODIUM 100 MG CAPSULE PO SCH (21:00)
[2025-03-08] MEDS: PANTOPRAZOLE SODIUM 40 MG/VIAL IVP SCH (21:00)
[2025-03-08] MEDS: MIRTAZAPINE 15 MG TABLET PO SCH (21:00)
[2025-03-09] VITALS (9 sets, daily range): BP systolic 106–122; BP diastolic 64–76; PULSE 84–99; RESP 18–19; TEMP 98.1–100.2; O2SAT 97–100
[2025-03-09] MEDS: ACETAMINOPHEN 325 MG TABLET PO PRN (00:19)
[2025-03-09] MEDS: TAMSULOSIN HCL 0.4 MG CAPSULE PO SCH (08:11)
[2025-03-09] MEDS: ZINC SULFATE 220 MG CAPSULE PO SCH (08:14)
[2025-03-09] MEDS: ASCORBIC ACID 500 MG TABLET PO SCH (08:14)
[2025-03-09] MEDS ORDERED: DOCUSATE SODIUM 100 MG CAPSULE PO SCH (09:00)
[2025-03-09] MEDS ORDERED: PANTOPRAZOLE SODIUM 40 MG DR TABLET PO SCH (09:00)
[2025-03-09 10:14] LABS: PLATELET COUNT (AUTO) 142 K/uL (150-450); RED BLOOD CELL COUNT(AUTO) 2.20 MIL/uL (4.50-5.90); RED CELL DISTRIBUTION WIDTH 15.9 % (11.5-14.5)
[2025-03-09 10:23] LABS: SODIUM SERUM 139.0 mmol/L (136-145)
[2025-03-09 10:25] LABS: CALCIUM, TOTAL 7.2 mg/dL (8.8-10.5); CREATININE 1.85 mg/dL (0.60-1.30); GLOMERULAR FILTR. RATE CALC 44.0 mL/min (>60); GLUCOSE,RANDOM 133.0 mg/dL (70-110)
[2025-03-09 10:31] LABS: UREA NITROGEN, BLOOD 32.0 mg/dL (7-18)
[2025-03-09 11:11] LABS: BAND NEUTROPHILS % (MANUAL) 11 % (0-5); BASOPHILS % (MANUAL) 1 % (0-2); CORRECTED WHITE BLOOD COUNT 5.0 K/uL (4.5-11.0); LYMPHOCYTES % (MANUAL) 25 % (22-44); METAMYELOCYTES % 1 % (0-0); MONOCYTES % (MANUAL) 9 % (2-9); NUCLEATED RED BLOOD CELLS 7.0 % (0.0-0.0); SEGMENTED NEUTROPHILS % 53 % (40-70); WHITE BLOOD COUNT (AUTO) 5.0 K/uL (4.5-11.0)
[2025-03-09] MEDS: HYDROCODONE/ACETAMINOPHEN 5-325 MG TABLET PO PRN (22:02)
[2025-03-10] VITALS (11 sets, daily range): BP systolic 103–131; BP diastolic 65–73; PULSE 86–95; RESP 16–20; TEMP 97.5–98.6; O2SAT 99–100
[2025-03-10 08:16] LABS: PLATELET COUNT (AUTO) 148 K/uL (150-450); RED BLOOD CELL COUNT(AUTO) 2.51 MIL/uL (4.50-5.90); RED CELL DISTRIBUTION WIDTH 16.3 % (11.5-14.5); WHITE BLOOD COUNT (AUTO) 5.0 K/uL (4.5-11.0)
[2025-03-10 08:20] LABS: CALCIUM, TOTAL 7.0 mg/dL (8.8-10.5); CREATININE 1.73 mg/dL (0.60-1.30); GLOMERULAR FILTR. RATE CALC 47.0 mL/min (>60); GLUCOSE,RANDOM 105.0 mg/dL (70-110); SODIUM SERUM 140.0 mmol/L (136-145); UREA NITROGEN, BLOOD 26.0 mg/dL (7-18)
[2025-03-11] VITALS (15 sets, daily range): BP systolic 104–127; BP diastolic 60–72; PULSE 71–89; RESP 18–22; TEMP 97.3–99.1; O2SAT 97–100
[2025-03-11 07:41] LABS: PLATELET COUNT (AUTO) 170 K/uL (150-450); RED BLOOD CELL COUNT(AUTO) 2.34 MIL/uL (4.50-5.90); RED CELL DISTRIBUTION WIDTH 16.2 % (11.5-14.5)
[2025-03-11 08:00] LABS: ASPARTATE AMINOTRANSFERASE 33.0 U/L (15-37); CALCIUM, TOTAL 7.0 mg/dL (8.8-10.5); CREATININE 1.73 mg/dL (0.60-1.30); GLOMERULAR FILTR. RATE CALC 47.0 mL/min (>60); GLUCOSE,RANDOM 102.0 mg/dL (70-110); SODIUM SERUM 137.0 mmol/L (136-145); TOTAL PROTEIN, SERUM 6.4 g/dL (6.4-8.2); UREA NITROGEN, BLOOD 26.0 mg/dL (7-18)
[2025-03-11 08:43] LABS: BAND NEUTROPHILS % (MANUAL) 7 % (0-5); CORRECTED WHITE BLOOD COUNT 4.1 K/uL (4.5-11.0); LYMPHOCYTES % (MANUAL) 31 % (22-44); METAMYELOCYTES % 2 % (0-0); MONOCYTES % (MANUAL) 12 % (2-9); NUCLEATED RED BLOOD CELLS 7.0 % (0.0-0.0); SEGMENTED NEUTROPHILS % 48 % (40-70); WHITE BLOOD COUNT (AUTO) 4.1 K/uL (4.5-11.0)
[2025-03-11] MEDS ORDERED: SODIUM CHLORIDE 0.9% 1,000 ML ONE (13:37)
[2025-03-12 00:02] VITALS: BP 135/76; PULSE 81; RESP 18; TEMP 98.2; O2SAT 98
[2025-03-12 04:45] VITALS: BP 113/72; PULSE 84; RESP 18; TEMP 98.1; O2SAT 98
[2025-03-12 06:51] LABS: PLATELET COUNT (AUTO) 173 K/uL (150-450); RED BLOOD CELL COUNT(AUTO) 2.76 MIL/uL (4.50-5.90); RED CELL DISTRIBUTION WIDTH 16.1 % (11.5-14.5); WHITE BLOOD COUNT (AUTO) 3.8 K/uL (4.5-11.0)
[2025-03-12 07:14] LABS: CALCIUM, TOTAL 6.7 mg/dL (8.8-10.5); CREATININE 1.63 mg/dL (0.60-1.30); GLOMERULAR FILTR. RATE CALC 51.0 mL/min (>60); GLUCOSE,RANDOM 137.0 mg/dL (70-110); SODIUM SERUM 139.0 mmol/L (136-145); UREA NITROGEN, BLOOD 23.0 mg/dL (7-18)
[2025-03-12 07:22] LABS: BAND NEUTROPHILS % (MANUAL) 0 % (0-5)
[2025-03-12 07:29] LABS: LYMPHOCYTES % (MANUAL) 26 % (22-44); METAMYELOCYTES % 1 % (0-0); MONOCYTES % (MANUAL) 9 % (2-9); MYELOCYTES % 1 % (0-0); NUCLEATED RED BLOOD CELLS 4.0 % (0.0-0.0); SEGMENTED NEUTROPHILS % 63 % (40-70)
[2025-03-12 07:40] VITALS: BP 121/73; PULSE 82; RESP 22; O2SAT 99
[2025-03-12 12:11] VITALS: BP 116/66; PULSE 75; RESP 17; TEMP 97.7; O2SAT 99
[2025-03-12 15:49] VITALS: BP 104/62; PULSE 81; RESP 17; TEMP 98.6; O2SAT 100
[2025-03-12 20:26] VITALS: BP 110/66; PULSE 91; RESP 16; TEMP 97.9; O2SAT 98
[2025-03-13 00:41] VITALS: BP 120/71; PULSE 80; RESP 18; TEMP 98.4; O2SAT 95
[2025-03-13 04:04] VITALS: BP 122/65; PULSE 83; RESP 18; TEMP 98.2; O2SAT 95
[2025-03-13 08:32] VITALS: BP 126/75; PULSE 82; RESP 17; TEMP 97.5; O2SAT 98
[2025-03-13 11:02] LABS: PLATELET COUNT (AUTO) 205 K/uL (150-450); RED BLOOD CELL COUNT(AUTO) 2.89 MIL/uL (4.50-5.90); RED CELL DISTRIBUTION WIDTH 16.0 % (11.5-14.5); WHITE BLOOD COUNT (AUTO) 4.0 K/uL (4.5-11.0)
[2025-03-13 11:18] LABS: CALCIUM, TOTAL 6.8 mg/dL (8.8-10.5); CREATININE 1.53 mg/dL (0.60-1.30); GLOMERULAR FILTR. RATE CALC 54.0 mL/min (>60); GLUCOSE,RANDOM 114.0 mg/dL (70-110); SODIUM SERUM 137.0 mmol/L (136-145); UREA NITROGEN, BLOOD 22.0 mg/dL (7-18)
[2025-03-13 12:04] VITALS: BP 128/72; PULSE 87; RESP 17; TEMP 97.9; O2SAT 97
[2025-03-13 16:05] VITALS: BP 130/76; PULSE 86; RESP 16; TEMP 98; O2SAT 96
[2025-03-13] MEDS ORDERED: MIRT-89 PO (17:26)
[2025-03-13] MEDS ORDERED: MAGN-169 PO (17:28)
== END 2025-03-13 19:45 | DRG 812 ==
LOC: EMS 00:13 → EDH 05:26 → 5N 06:47
PROVIDERS: ADMIT Hospitalist; ATTEND Hospitalist
PROC: 30233N1 Transfusion of Nonautologous Red Blood Cells into Peripheral Vein, Percutaneous Approach (ICD-10-PCS; principal; 2025-03-08)
PROC: 5A0935A Assistance with Respiratory Ventilation, Less than 24 Consecutive Hours, High Flow/Velocity Cannula (ICD-10-PCS; 2025-03-10)
DX: D64.9 Anemia, unspecified (principal); M84.48XA Pathological fracture, other site, initial encounter for fracture; C79.82 Secondary malignant neoplasm of genital organs; N39.0 Urinary tract infection, site not specified; G90.89 Other disorders of autonomic nervous system; G89.3 Neoplasm related pain (acute) (chronic); E78.00 Pure hypercholesterolemia, unspecified; J44.9 Chronic obstructive pulmonary disease, unspecified; R00.0 Tachycardia, unspecified; N40.0 Benign prostatic hyperplasia without lower urinary tract symptoms; R07.89 Other chest pain; E88.A Wasting disease (syndrome) due to underlying condition; Z66 Do not resuscitate; Z68.23 Body mass index [BMI] 23.0-23.9, adult
CPT/HCPCS: 71045; 80048; 80053; 81001; 81002; 82271; 82550; 83880; 84484; 85025; 86850; 86900; 86901; 86923; 87040; 87081; 93005; 96361; 96365; 96375; 99285; J0696; J2270; J2470; J7030; P9016; 36415-L1; 36415-TC